=== PATIENT | male | born 1960 | race Caucasian/White ===

== ENCOUNTER → 2017-12-14 | Outpatient (CLI) | payer OTHER ==
[~2017-12-14] MED LIST: IOPAMIDOL 370 MG/ML 200 ML INFUS..BTL INJ ONE; SODIUM CHLORIDE 0.9% 250ML 250 ML ONE
--- NOTE | 2017-12-14 17:56 | Diagnostic Imaging Report ---
PROCEDURE: CT ABDOMEN \T\ PELVIS W/WO CONTRAST TECHNIQUE: The abdomen and pelvis were scanned utilizing a multidetector helical scanner from the diaphragm to the lesser trochanter before and after the IV administration of 150 cc of Isovue 370 and the oral administration of water. Coronal and sagittal multiplanar reformations were obtained. CT urogram protocol was performed. Additional 3-D reconstruction images were performed utilizing off on an off-line advanced workstation by the technologist and supervised by the radiologist. Total DLP: 1655.89 mGy-cm COMPARISON: None. INDICATIONS: HEMATURIA FINDINGS: LOWER THORAX: Normal. HEPATOBILIARY: No focal hepatic lesions. No biliary ductal dilatation. SPLEEN: No splenomegaly. PANCREAS: No focal masses or ductal dilatation. ADRENALS: No adrenal nodules. KIDNEYS/URETERS: No hydronephrosis or solid mass lesions. Simple 5 cm stone in the inferior pole of the kidney. Normal renal calyxes, pelvis, and ureters. Normal bladder. PELVIC ORGANS/BLADDER: Unremarkable. PERITONEUM / RETROPERITONEUM: No free air or fluid. LYMPH NODES: No lymphadenopathy. VESSELS: Unremarkable. GI TRACT: No distention or wall thickening. BONES AND SOFT TISSUES: Unremarkable. Benign-appearing sclerotic foci in the left ischium and the left ilium. Next fat-containing left indirect inguinal hernia and a left femoral hernia. Tiny fat containing right femoral hernia. IMPRESSION: 0.5 cm right renal stone. Dictated by: Yonatan Garcia M.D. on 12/14/2017 at 17:55 Electronically approved by: Yonatan Garcia M.D. on 12/14/2017 at 17:55
== END ==
LOC: CT 13:47
PROVIDERS: ATTEND Urology
DX: N20.0 Calculus of kidney (principal)
CPT/HCPCS: 74178; J7050; Q9967